=== PATIENT | male | born 1970 | race Caucasian/White ===

== ENCOUNTER → 2017-02-10 | Outpatient (CLI) | payer BC, OTHER ==
[2017-02-10 16:08] LABS: CHLORIDE,CL 104 mmol/L (98-110); SODIUM,NA 139 mmol/L (136-146)
== END ==
LOC: MW.CHRC 15:20
PROVIDERS: ATTEND Family Medicine
DX: M43.6 Torticollis (principal)
CPT/HCPCS: 36415; 80048; 83735

== ENCOUNTER 2023-08-13 10:16 | Day surgery (SDC) | payer BC ==
[~2023-08-13 10:16] MED LIST: Lactated Ringers 1,000 ML IV SCH; propofoL 0 ML ONE
[2023-08-13] MEDS ORDERED: propofoL 50 ML ONE (11:01)
[2023-08-13] MEDS ORDERED: Lactated Ringers 1,000 ML IV SCH (12:15)
== END 2023-08-13 12:45 | disposition home or self-care (01) ==
LOC: MW.SDS 10:16
PROVIDERS: ATTEND Surgery
DX: D12.3 Benign neoplasm of transverse colon (principal); K63.5 Polyp of colon; K57.30 Diverticulosis of large intestine without perforation or abscess without bleeding; J44.9 Chronic obstructive pulmonary disease, unspecified; E11.9 Type 2 diabetes mellitus without complications; E66.01 Morbid (severe) obesity due to excess calories; Z68.38 Body mass index [BMI] 38.0-38.9, adult; E78.00 Pure hypercholesterolemia, unspecified; Z86.16 Personal history of COVID-19; Z87.891 Personal history of nicotine dependence; Z79.84 Long term (current) use of oral hypoglycemic drugs; Z79.899 Other long term (current) drug therapy
CPT/HCPCS: 45385; J2704; J7120

== ENCOUNTER 2025-03-13 21:20 | Emergency (ER) | payer OTHER, BC ==
[2025-03-13] MEDS: Diphtheria,Pertussis(Acell),Tetanus Vaccine 0.5 ML Syringe IM ONE (23:10)
[2025-03-13] MEDS: Acetaminophen/oxyCODONE 325-10 MG Tab PO ONE (23:10)
[2025-03-13] MEDS: Amoxicillin/Clavulanate K 875-125 MG Tab PO ONE (23:10)
[2025-03-13] MEDS: Lidocaine 1% 10 ML MDV INJECT ONE (23:11)
[2025-03-13] MEDS: Bacitracin Oint 1 GM U/D Packet TOP ONE (23:53)
== END 2025-03-13 23:55 | disposition home or self-care (01) ==
LOC: MW.ED 21:20
DX: S61.451A Open bite of right hand, initial encounter (principal); S61.411A Laceration without foreign body of right hand, initial encounter; E78.00 Pure hypercholesterolemia, unspecified; E11.9 Type 2 diabetes mellitus without complications; E66.9 Obesity, unspecified; Z79.899 Other long term (current) drug therapy; Z79.84 Long term (current) use of oral hypoglycemic drugs; Z68.41 Body mass index [BMI] 40.0-44.9, adult; W54.0XXA Bitten by dog, initial encounter
CPT/HCPCS: 12002; 90471; 90715; 99283; A9270; J2003